=== PATIENT | male | born 1940 | race Caucasian/White ===

== ENCOUNTER 2018-04-22 05:34 | Inpatient (IN) | payer MEDICARE, MEDICAID, OTHER ==
[~2018-04-22] VITALS: Ht 154.9 cm; Wt 77.1 kg
[2018-04-22 06:35] LABS: BASOPHILS % 0.5 % (0.0-2.0); EOSINOPHILS % 1.5 % (0.0-5.0); HEMATOCRIT. 37.2 % (42.0-52.0); HEMOGLOBIN. 12.7 g/dL (14.0-18.0); LYMPHOCYTES % 26.2 % (20.0-50.0); MEAN CORPUSCULAR VOLUME 93.7 fL (80.0-94.0); MEAN PLATELET VOLUME 7.8 fl (7.4-10.4); MONOCYTES % 9.2 % (2.0-8.0); NEUTROPHILS % 62.6 % (40.0-76.0); PLATELET 188 x1000/uL (130-400); RED BLOOD CELL COUNT 3.97 mill/uL (4.7-6.1)
[2018-04-22 06:41] LABS: CHLORIDE 110 mEq/L (98-107)
[2018-04-22] MEDS ORDERED: IOPAMIDOL 20 ML VIAL IT ONE ×2 (07:13→07:38)
[2018-04-22] MEDS ORDERED: ROCURONIUM BROMIDE 10MG/ML VIAL 5ML IV ONE (07:30)
[2018-04-22] MEDS ORDERED: NEOSTIGMINE METHYLSULFATE 1MG/ML 10 ML VIAL ONE (07:30)
[2018-04-22] MEDS ORDERED: PROPOFOL 200MG/20ML VIAL IV ONE (07:30)
[2018-04-22] MEDS ORDERED: FENTANYL CITRATE/PF 50MCG/ML 2ML VIAL ONE (07:30)
[2018-04-22] MEDS ORDERED: PHENYLEPHRINE HCL 10 MG/ML 1ML (IV VIAL) IV ONE (07:31)
[2018-04-22] MEDS ORDERED: GLYCOPYRROLATE 0.2 MG/ML 2ML VIAL ONE (07:31)
[2018-04-22] MEDS ORDERED: CEFAZOLIN SODIUM 1000MG/VIAL ONE (07:31)
[2018-04-22] MEDS ORDERED: SODIUM CHLORIDE 0.9% 10ML VIAL ONE (07:31)
[2018-04-22] MEDS ORDERED: MIDAZOLAM HCL 2 MG/2 ML VIAL ONE (07:31)
[2018-04-22] MEDS ORDERED: ONDANSETRON HCL 4MG/2ML INJ ONE (07:31)
[2018-04-22] MEDS ORDERED: SUCCINYLCHOLINE CHLORIDE 200MG/10ML IV ONE (07:31)
[2018-04-22] MEDS ORDERED: METOCLOPRAMIDE HCL 10MG/2ML VIAL ONE (07:31)
[2018-04-22] MEDS ORDERED: EPHEDRINE SULFATE 50MG/ML VIAL ONE (07:31)
[2018-04-22] MEDS ORDERED: MEPERIDINE HCL/PF 25MG/ML CPJ IV PRN (08:15)
[2018-04-22] MEDS ORDERED: HYDROMORPHONE HCL/PF 2MG/ML CPJ IV PRN (08:15)
[2018-04-22] MEDS ORDERED: ONDANSETRON HCL 4MG/2ML INJ IV PRN (08:15)
[2018-04-22] MEDS ORDERED: LOSA25TA12 PO (08:32)
[2018-04-22] MEDS ORDERED: ASPI-1159 PO (08:32)
[2018-04-22] MEDS ORDERED: CITA10SO PO (08:32)
[2018-04-22] MEDS ORDERED: LACTATED RINGERS 1,000 ML IV SCH (09:42)
[2018-04-22 11:51] LABS: INR 1.1; PARTIAL THROMBOPLASTIN TIME 26.2 sec (23.4-31.0); PROTHROMBIN TIME 10.7 sec (9.1-11.1)
[2018-04-22 14:30] VITALS: BP 161/80
[2018-04-22 16:00] VITALS: BP 144/72
[2018-04-22] MEDS ORDERED: MAGNESIUM HYDROXIDE 400MG/5ML 30ML UDC PO PRN (16:30)
[2018-04-22] MEDS ORDERED: LORAZEPAM 1MG TABLET PO PRN (16:30)
[2018-04-22] MEDS ORDERED: OMEG100017 MT (17:22)
[2018-04-22] MEDS ORDERED: PANT40TA4 MT (17:22)
[2018-04-22] MEDS: BICALUTAMIDE 50 MG TABLET PO SCH (18:06)
[2018-04-22] MEDS: SODIUM CHLORIDE 0.9% 1,000 ML IV NR ×2 (19:38→22:50)
[2018-04-22 20:00] VITALS: BP 160/88
[2018-04-23] VITALS: BP 145/77
[2018-04-23 04:00] VITALS: BP 159/76
[2018-04-23 06:26] LABS: BASOPHILS % 0.3 % (0.0-2.0); EOSINOPHILS % 1.2 % (0.0-5.0); HEMATOCRIT. 33.9 % (42.0-52.0); HEMOGLOBIN. 11.8 g/dL (14.0-18.0); LYMPHOCYTES % 22.8 % (20.0-50.0); MEAN CORPUSCULAR HEMOGLOBIN 32.4 pg (28.0-32.0); MONOCYTES % 9.5 % (2.0-8.0); NEUTROPHILS % 66.2 % (40.0-76.0); PLATELET 176 x1000/uL (130-400); RED BLOOD CELL COUNT 3.64 mill/uL (4.7-6.1); RED CELL DISTRIBUTION WIDTH 13.9 % (11.6-14.6)
[2018-04-23 06:38] LABS: CHLORIDE 111 mEq/L (98-107)
[2018-04-23 08:00] VITALS: BP 166/82
[2018-04-23] MEDS: SODIUM CHLORIDE 0.9% 1,000 ML IV NR (09:22)
[2018-04-23] MEDS: BICALUTAMIDE 50 MG TABLET PO SCH (09:22)
[2018-04-23 12:00] VITALS: BP 158/71
== END 2018-04-23 13:50 | disposition home or self-care (01) | DRG 717 ==
LOC: OR 05:34 → 6EST 05:35
PROVIDERS: ADMIT Urology; ATTEND Urology
PROC: 0T5C8ZZ Destruction of Bladder Neck, Via Natural or Artificial Opening Endoscopic (ICD-10-PCS; principal; 2018-04-23)
PROC: 3C1ZX8Z Irrigation of Indwelling Device using Irrigating Substance, External Approach (ICD-10-PCS; 2018-04-23)
DX: N40.1 Benign prostatic hyperplasia with lower urinary tract symptoms (principal); N13.8 Other obstructive and reflux uropathy; N21.0 Calculus in bladder; R31.0 Gross hematuria; N32.0 Bladder-neck obstruction; N32.89 Other specified disorders of bladder; H54.7 Unspecified visual loss; Z87.442 Personal history of urinary calculi
CPT/HCPCS: 36415; 80048; 93005; C1769; J0330; J0690; J2250; J2370; J2405; J2704; J2710; J2765; J3010; J3490; J7030; Q9966; A4315